=== PATIENT | female | born 1995 | race Caucasian/White ===

== ENCOUNTER 2017-05-22 22:54 | Emergency (ER) | payer MEDICAID ==
[~2017-05-22] VITALS: Ht 175.3 cm; Wt 100.1 kg
[~2017-05-22 22:54] MED LIST: ESTR2TAB PO; SPIR100T2 PO
[2017-05-22 23:51] LABS: BASOPHILS # (AUTO) 0.09 x10^3/uL (0-0.1); BASOPHILS % (AUTO) 1 % (0-1); EOSINOPHILS # (AUTO) 0.38 x10^3/uL (0-0.4); EOSINOPHILS % (AUTO) 4 % (1-7); LYMPHOCYTES # (AUTO) 3.44 x10^3/uL (1-3.4); LYMPHOCYTES % (AUTO) 32 % (22-44); MD NO; MEAN CORPUSCULAR HEMOGLOBIN 30.5 pg (27.0-34.8); MEAN CORPUSCULAR HGB CONC 33.9 g/dL (32.4-35.8); MEAN PLATELET VOLUME 8.6 fL (7.4-10.4); MONOCYTES # (AUTO) 0.71 x10^3/uL (0.2-0.8); MONOCYTES % (AUTO) 7 % (2-9); NEUTROPHILS # (AUTO) 6.26 x10^3/uL (1.8-6.8); NEUTROPHILS % (AUTO) 58 % (42-75); PLATELET COUNT 291 x10^3/uL (130-400); RED BLOOD COUNT 4.13 x10^6/uL (3.82-5.3); RED CELL DISTRIBUTION WIDTH 12.2 % (9.6-15.2)
[2017-05-23 00:01] LABS: ALANINE AMINOTRANSFERASE 22 U/L (12-78); ALBUMIN 3.6 g/dL (3.4-5.0); ANION GAP 8 mmol/L (5-15); CALCIUM 8.7 mg/dL (8.5-10.1); CHLORIDE 106 mmol/L (98-107)
[2017-05-23 00:02] LABS: SALICYLATE LEVEL < 1.7 mg/dL (2.8-20.0)
[2017-05-23 00:07] LABS: ALKALINE PHOSPHATASE 77 U/L (45-117); BILIRUBIN,TOTAL 0.2 mg/dL (0.2-1.0); CREATININE 0.79 mg/dL (0.55-1.02); TOTAL PROTEIN 7.8 g/dL (6.4-8.2)
[2017-05-23 00:11] LABS: ACETAMINOPHEN < 2 mcg/mL (10-30)
[2017-05-23 00:37] LABS: AMPHETAMINE SCREEN, URINE Negative (Negative); BARBITURATE SCREEN, URINE Negative (Negative); BENZODIAZEPINE SCREEN, URINE Negative (Negative); CANNABINOID SCREEN, URINE Negative (Negative); COCAINE SCREEN, URINE Negative (Negative); METHADONE SCREEN, URINE Negative (Negative); OPIATE SCREEN, URINE Negative (Negative)
[2017-05-23 00:59] VITALS: BP 123/82
== END 2017-05-23 01:12 | disposition home or self-care (01) ==
LOC: ED 05-23 00:45
DX: F41.0 Panic disorder [episodic paroxysmal anxiety] (principal); R45.851 Suicidal ideations
CPT/HCPCS: 36415; 80053; 80307; 80329; 84703; 85025; 99284; G0479; G0480

== ENCOUNTER 2019-07-28 01:29 | Emergency (ER) | payer MEDICAID ==
[~2019-07-28] VITALS: Ht 172.7 cm; Wt 99.5 kg
[~2019-07-28 01:29] MED LIST changes: +ALBU1.25 NEB; +BUSP5TAB2 PO; +DULOX PO; -SPIR100T2 PO; +SPIR100T4 PO; +TRAZ50TA66 PO
[2019-07-28] MEDS ORDERED: ESTRADIOL (01:36)
[2019-07-28] MEDS ORDERED: AMPH15CA6 PO (01:36)
--- NOTE | 2019-07-28 01:39 | NUR ---
PT HERE STATING THAT SHE CAN MOVE HER HANDS BUT THEY FEEL LIKE THE TENDONS ARE SLIPPING AROUND THE BONE. THIS HAS BEEN PRESENT SINCE 1500 AND HAS GRADUALLY INCREASED. per triage note pt walked in with stable gait followed by staff in the
--- NOTE | 2019-07-28 01:51 | NUR ---
malcolm yeboah at bed side applied blanket
[2019-07-28] MEDS ORDERED: KETOROLAC 30 MG/1 ML IM ONE (02:00)
[2019-07-28 03:16] LABS: ANION GAP 7 mmol/L (5-15); CALCIUM 8.8 mg/dL (8.5-10.1); CHLORIDE 106 mmol/L (98-107); CREATININE 0.93 mg/dL (0.55-1.02)
[2019-07-28 03:18] LABS: BASOPHILS # (AUTO) 0.11 x10^3/uL (0-0.1); BASOPHILS % (AUTO) 1 % (0-1); EOSINOPHILS # (AUTO) 0.57 x10^3/uL (0-0.4); EOSINOPHILS % (AUTO) 5 % (1-7); LYMPHOCYTES # (AUTO) 2.77 x10^3/uL (1-3.4); LYMPHOCYTES % (AUTO) 25 % (22-44); MD NO; MEAN CORPUSCULAR HEMOGLOBIN 29.7 pg (27.0-34.8); MEAN CORPUSCULAR HGB CONC 33.6 g/dL (32.4-35.8); MEAN CORPUSCULAR VOLUME 88.4 fL (80-100); MEAN PLATELET VOLUME 8.6 fL (7.4-10.4); MONOCYTES # (AUTO) 0.59 x10^3/uL (0.2-0.8); MONOCYTES % (AUTO) 5 % (2-9); NEUTROPHILS # (AUTO) 7.11 x10^3/uL (1.8-6.8); NEUTROPHILS % (AUTO) 64 % (42-75); PLATELET COUNT 313 x10^3/uL (130-400); RED BLOOD COUNT 4.31 x10^6/uL (3.82-5.3); RED CELL DISTRIBUTION WIDTH 12.3 % (9.6-15.2)
[2019-07-28] MEDS ORDERED: KETOROLAC 30 MG/1 ML ONE (03:18)
--- NOTE | 2019-07-28 03:25 | NUR ---
PT MEDICATED PER MAR
--- NOTE | 2019-07-28 03:31 | NUR ---
PA AT PT'S BEDSIDE FOR RECHECK
[2019-07-28 04:07] VITALS: BP 125/81
== END 2019-07-28 04:18 | disposition home or self-care (01) ==
LOC: ED 02:00
DX: F41.1 Generalized anxiety disorder (principal); M79.641 Pain in right hand; M79.642 Pain in left hand; Z72.9 Problem related to lifestyle, unspecified; I10 Essential (primary) hypertension
CPT/HCPCS: 36415; 80048; 85025; 96372; 99283; J1885

== ENCOUNTER 2019-12-21 01:53 | Emergency (ER) | payer MEDICAID ==
[~2019-12-21] VITALS: Ht 175.3 cm; Wt 96.6 kg
[~2019-12-21 01:53] MED LIST changes: +AMPH15CA6 PO; +ESTRADIOL
[2019-12-21 01:56] VITALS: BP 121/76
[2019-12-21 03:18] LABS: MICROSCOPIC NOT IND
[2019-12-21 03:27] LABS: BASOPHILS # (AUTO) 0.03 x10^3/uL (0-0.1); BASOPHILS % (AUTO) 0 % (0-1); EOSINOPHILS # (AUTO) 0.66 x10^3/uL (0-0.4); EOSINOPHILS % (AUTO) 5 % (1-7); LYMPHOCYTES % (AUTO) 31 % (22-44); MD NO; MEAN CORPUSCULAR HEMOGLOBIN 30.3 pg (27.0-34.8); MEAN CORPUSCULAR HGB CONC 33.1 g/dL (32.4-35.8); MEAN CORPUSCULAR VOLUME 91.5 fL (80-100); MEAN PLATELET VOLUME 8.3 fL (7.4-10.4); MONOCYTES # (AUTO) 0.71 x10^3/uL (0.2-0.8); MONOCYTES % (AUTO) 6 % (2-9); NEUTROPHILS # (AUTO) 7.23 x10^3/uL (1.8-6.8); NEUTROPHILS % (AUTO) 58 % (42-75); PLATELET COUNT 357 x10^3/uL (130-400); RED CELL DISTRIBUTION WIDTH 12.7 % (9.6-15.2)
[2019-12-21 03:31] LABS: ALBUMIN 3.9 g/dL (3.4-5.0); ANION GAP 7 mmol/L (5-15); CALCIUM 8.9 mg/dL (8.5-10.1); CHLORIDE 107 mmol/L (98-107)
[2019-12-21 03:36] LABS: ALANINE AMINOTRANSFERASE 24 U/L (12-78); ALKALINE PHOSPHATASE 70 U/L (45-117); BILIRUBIN,TOTAL 0.3 mg/dL (0.2-1.0); CREATININE 0.76 mg/dL (0.55-1.02); TOTAL PROTEIN 8.6 g/dL (6.4-8.2)
--- NOTE | 2019-12-21 04:40 | NUR ---
PT AMBULATES FROM LOBBY TO ROOM WITH STEADY GAIT.
== END 2019-12-21 07:23 | disposition home or self-care (01) ==
LOC: ED 05:14
DX: R10.32 Left lower quadrant pain (principal); D72.829 Elevated white blood cell count, unspecified; R19.7 Diarrhea, unspecified; K59.00 Constipation, unspecified
CPT/HCPCS: 36415; 74176; 80053; 81003; 85025; 99284